=== PATIENT | male | born 1955 | race Caucasian/White ===

== ENCOUNTER 2016-10-22 06:52 | Day surgery (SDC) | payer OTHER ==
[~2016-10-22] VITALS: Ht 167.6 cm; Wt 98.9 kg
[2016-10-22] MEDS ORDERED: ASPI-664 PO (08:36)
[2016-10-22] MEDS ORDERED: BP MED PO (08:36)
[2016-10-22 08:39] VITALS: Ht 167.6 cm; Wt 98.9 kg
[2016-10-22 09:09] VITALS: BP 161/79; PULSE 59; RESP 12
[2016-10-22 10:02] VITALS: BP 141/7
--- NOTE | 2016-10-22 10:55 | GILP ---
DATE OF PROCEDURE: 10/22/2016 PROCEDURE PERFORMED: Colonoscopy and biopsy. SURGEON: Linda Dobson MD PREOPERATIVE DIAGNOSIS: Screening colonoscopy. POSTOPERATIVE DIAGNOSES: 1. Colonoscopy all the way to the cecum. 2. Small cecal polyp was removed using the biopsy forceps. 3. Internal hemorrhoids. INDICATION: Mr. Andrade Ruth is a 61-year-old male patient who was scheduled for screening colonoscopy. The procedure and possible complications were well explained to the patient. The patient understood and consented to the procedure. DESCRIPTION OF PROCEDURE: Under influence of anesthesia, the colonoscope was carefully introduced in the rectum. Under direct vision, it was advanced all the way to the cecum. FINDINGS: The patient had a small polyp in the cecum and it was removed using the biopsy forceps. The patient was noted to have internal hemorrhoids. The patient tolerated the procedure very well. There was no complication from the procedure. At the end of procedure, he was awake with stable vital signs. He was discharged home in the care of his family. IMPRESSION: 1. Colonoscopy all the way to the cecum. 2. Small cecal polyp was removed using the biopsy forceps. 3. Internal hemorrhoids. PLAN: Next screening colonoscopy in 10 years. Dictated By: MD MISTI Cantu/[email or web address]/pastora /Document#: [id number]
[2016-10-23] MEDS ORDERED: PROPOFOL 40 ML ONE (18:02)
[2016-10-23] MEDS ORDERED: LIDOCAINE 2% (SDV) 5 ML INJ ONE (18:02)
== END 2016-10-22 10:51 | disposition home or self-care (01) ==
LOC: GIL 06:52
PROVIDERS: ATTEND Internal Medicine Gastroenterology
DX: Z12.11 Encounter for screening for malignant neoplasm of colon (principal); D12.0 Benign neoplasm of cecum; K64.8 Other hemorrhoids; I10 Essential (primary) hypertension; E66.9 Obesity, unspecified; Z68.35 Body mass index [BMI] 35.0-35.9, adult
CPT/HCPCS: 45380; 88305; Z7610

== ENCOUNTER 2017-06-20 04:12 | Inpatient (IN) | END 2017-06-24 19:30 | disposition home or self-care (01) | DRG 417 ==

== ENCOUNTER 2017-07-01 10:05 | Emergency (ER) | END 2017-07-01 20:20 | disposition home or self-care (01) ==